=== PATIENT | female | born 1990 | race Hispanic/Latino ===

== ENCOUNTER 2017-01-10 22:14 | Emergency (ER) | payer BC ==
[2017-01-10 23:29] LABS: BASO # 0.1 K/uL (0.0-0.2); BASO % 0.6 % (0.0-2.0); EOS # 0.1 K/uL (0.0-0.7); EOS % 0.8 % (0.0-4.0); HEMATOCRIT 44.2 % (34.0-47.0); LYMPH # 3.2 K/uL (1.0-4.3); LYMPH % 33.3 % (20.0-40.0); MEAN CELL VOLUME 99.4 fl (81.0-99.0); MEAN CORPUSCULAR HEMOGLOBIN 33.5 pg (27.0-31.0); MEAN CORPUSCULAR HGB CONC 33.7 g/dL (33.0-37.0); MEAN PLATELET VOLUME 9.2 fl (7.2-11.7); MONO # 0.6 K/uL (0.0-0.8); MONO % 6.6 % (0.0-10.0); NEUT # 5.6 K/uL (1.8-7.0); NEUT % 58.7 % (50.0-75.0); NRBC % 0.1 % (0.0-0.0); RED CELL DISTRIBUTION WIDTH 12.7 % (11.5-14.5); WHITE BLOOD COUNT 9.5 K/uL (4.8-10.8)
--- NOTE | 2017-01-10 23:33 | ED PDOC ---
HPI: Skin/Bite Injury Time Seen by Provider: 01/10/17 22:28 Chief Complaint (Nursing): Abnormal Skin Integrity Chief Complaint (Provider): Rash - Itchy History Per: Patient History/Exam Limitations: no limitations Onset/Duration Of Symptoms: Days Current Symptoms Are (Timing): Still Present Quality Of Symptoms: Itching Severity: Mild Additional Complaint(s): Pt reports rash which began in the groin 5 days ago. PT states initially she thought it was just razor burn. Pt states it was not itchy or painful at the time. PT states she then began to notice a few erythematous areas on the UE and anterior left leg. Pt reports itchiness x 1 day. No medications at home for symptoms. Pt denies new lotion, detergent, etc. Pt has one current sexual partner. Pt states she also has been feeling off. Past Medical History Reviewed: Historical Data, Nursing Documentation, Vital Signs Vital Signs: Last Vital Signs Temp 97.7 F 01/10/17 22:18 Pulse 100 H 01/10/17 22:18 Resp 16 01/10/17 22:18 BP 119/77 01/10/17 22:18 Pulse Ox 97 01/10/17 22:18 - Medical History PMH: No Chronic Diseases - Surgical History Surgical History: No Surg Hx - Family History Family History: States: No Known Family Hx - Living Arrangements Living Arrangements: With Family - Social History Current smoker - smoking cessation education provided: Yes (Occasional ) Alcohol: Occasional Drugs: Denies - Allergies Allergies/Adverse Reactions: Allergies Allergy/AdvReac Type Severity Reaction Status Date / Time amoxicillin Allergy RASH Verified 01/10/17 22:18 Review of Systems ROS Statement: Except As Marked, All Systems Reviewed And Found Negative Constitutional: Negative for: Fever, Chills Gastrointestinal: Negative for: Nausea, Vomiting, Abdominal Pain Physical Exam - Reviewed Nursing Documentation Reviewed: Yes Vital Signs Reviewed: Yes - Physical Exam Appears: Positive for: Well, Non-toxic, No Acute Distress Head Exam: Positive for: ATRAUMATIC, NORMAL INSPECTION, NORMOCEPHALIC Skin: Positive for: Warm, Rash (Erythematous raised rash on the groin, maculopapular, some lesions with scaled edges. (+) lesion on the anterior left lower leg with central scalled white skin. Several smal erythematous papules on UE bilateral). Negative for: Normal Color Eye Exam: Positive for: Normal appearance ENT: Positive for: Normal ENT Inspection Neck: Positive for: Normal, Painless ROM Cardiovascular/Chest: Positive for: Regular Rate, Rhythm Respiratory: Positive for: Normal Breath Sounds. Negative for: Accessory Muscle Use, Respiratory Distress Back: Positive for: Normal Inspection Extremity: Positive for: Normal ROM Neurologic/Psych: Positive for: Alert, Oriented - ECG O2 Sat by Pulse Oximetry: 97 Medical Decision Making Medical Decision Making: Pt endorsed to DEMETRI Levine at 0000 Disposition - Clinical Impression Clinical Impression: Rash - Patient ED Disposition Is Patient to be Admitted: Transfer of Care - Disposition Disposition: Transfer of Care Disposition Time: 00:00 Condition: STABLE
[2017-01-10 23:46] LABS: ALB/GLOB RATIO 1.5 (1.0-2.1); ALKALINE PHOSPHATASE 54 U/L (38-126); ALT/SGPT 20 U/L (9-52); AST/SGOT 32 U/L (14-36); BILIRUBIN,TOTAL 0.8 mg/dl (0.2-1.3); BLOOD UREA NITROGEN 11 mg/dl (7-17); CALCIUM 10.6 mg/dL (8.4-10.2); CARBON DIOXIDE 24 mmol/L (22-30); CHLORIDE 102 mmol/L (98-107); GFR AFRICAN-AMERICAN > 60; GLUCOSE,RANDOM 100 mg/dL (65-105); POTASSIUM 4.2 MMOL/L (3.6-5.0); SODIUM 143 mmol/l (132-148); TOTAL PROTEIN 8.2 G/DL (6.3-8.2)
[2017-01-11 00:28] VITALS: PULSE 80; RESP 18; TEMP 98; O2SAT 98
[2017-01-11 00:30] VITALS: BP 112/78
--- NOTE | 2017-01-11 00:57 | ED PDOC ---
- Laboratory Results Result Diagrams: 01/10/17 23:28 01/10/17 23:28 - ECG O2 Sat by Pulse Oximetry: 98 - Progress ED Course And Treament: Case endorsed to loan underwriter from lian MOSQUERA pending labs Patient evaluated by ED attending, will treat for tinea infection. Patient educated on findings, discharged with rx Clotrimazole. Advised follow up PMD 2-3 days. Follow up Dermatology for persistent symptoms. Return to ED for worsening/concerning symptoms. Disposition - Clinical Impression Clinical Impression: Rash - POA Present On Arrival: None - Disposition Disposition: Routine/Home Disposition Time: 00:57 Condition: STABLE Prescriptions: Clotrimazole 1% Cream [Lotrimin 1% CREAM] 1 applic TOP BID #1 tube Instructions: Skin Yeast Infection (ED) Forms: [facility] (Kyrgyz)
== END 2017-01-11 01:02 | disposition home or self-care (01) ==
LOC: H.ER 22:14
DX: B35.4 Tinea corporis (principal)

== ENCOUNTER 2017-10-12 16:41 | Emergency (ER) | payer BC ==
[2017-10-12 17:48] VITALS: O2SAT 99
[2017-10-12] MEDS ORDERED: Alum-Mag Hydrox-Simethicone Susp (30 mL) PO ONE (19:42)
[2017-10-12] MEDS ORDERED: Alum-Mag Hydrox-Simethicone Susp (30 mL) ONE (19:50)
--- NOTE | 2017-10-12 19:50 | ED PDOC ---
HPI: Abdomen Time Seen by Provider: 10/12/17 19:29 Chief Complaint (Nursing): Abdominal Pain Chief Complaint (Provider): Abdominal Pain History Per: Patient History/Exam Limitations: no limitations Onset/Duration Of Symptoms: Days (x1) Current Symptoms Are (Timing): Still Present Additional Complaint(s): 27 year old female with surgical history of appendectomy, presents to the emergency department with a complaint of upper and lower abdominal pain associated with cramping and pleuritic pain ongoing since 1400 earlier today. Patient further reports irregular menstrual bleeding (twice this month) with intermittent blood clots and dizziness. She was seen at an Urgent Care center today and recommended to go to ED for further evaluation. Patient denies any vomiting or diarrhea. She states she had similar but less severe episodes in the past which usually resolves on its own. Patient has a pending [facility] appointment on 10/15/17. Past Medical History Reviewed: Historical Data, Nursing Documentation, Vital Signs Vital Signs: Last Vital Signs Temp 98.4 F 10/12/17 17:43 Pulse 95 H 10/12/17 17:43 Resp 18 10/12/17 17:43 BP 104/70 10/12/17 17:43 Pulse Ox 99 10/12/17 23:40 - Medical History PMH: No Chronic Diseases - Surgical History Surgical History: Appendectomy - Family History Family History: States: Unknown Family Hx - Immunization History Hx Tetanus Toxoid Vaccination: No Hx Influenza Vaccination: No Hx Pneumococcal Vaccination: No - Home Medications Home Medications: Ambulatory Orders Medication Instructions Recorded Clotrimazole 1% Cream [Lotrimin 1% 1 applic TOP BID #1 tube 01/11/17 CREAM] Famotidine [Pepcid] 20 mg PO DAILY #14 tab 10/12/17 - Allergies Allergies/Adverse Reactions: Allergies Allergy/AdvReac Type Severity Reaction Status Date / Time amoxicillin Allergy RASH Verified 10/12/17 17:43 Review of Systems ROS Statement: Except As Marked, All Systems Reviewed And Found Negative Respiratory: Positive for: Pleuritic Pain Gastrointestinal: Positive for: Abdominal Pain (upper and lower with cramps). Negative for: Vomiting, Diarrhea Genitourinary Female: Positive for: Vaginal Bleeding (blood clots) Neurological: Positive for: Dizziness Physical Exam - Reviewed Nursing Documentation Reviewed: Yes Vital Signs Reviewed: Yes - Physical Exam Appears: Positive for: Well, Non-toxic, No Acute Distress Head Exam: Positive for: ATRAUMATIC, NORMAL INSPECTION, NORMOCEPHALIC Skin: Positive for: Normal Color Eye Exam: Positive for: Normal appearance ENT: Positive for: Normal ENT Inspection Neck: Positive for: Normal, Supple Cardiovascular/Chest: Positive for: Regular Rate, Rhythm. Negative for: Murmur Respiratory: Positive for: Normal Breath Sounds. Negative for: Respiratory Distress Gastrointestinal/Abdominal: Positive for: Soft, Tenderness (epigastic; suprapubic - LLQ > RUQ). Negative for: Distended, Guarding, Rebound Back: Positive for: Normal Inspection. Negative for: L CVA Tenderness, R CVA Tenderness Extremity: Positive for: Normal ROM (upper/lower) Neurologic/Psych: Positive for: Alert, Oriented. Negative for: Motor/Sensory Deficits - Laboratory Results Result Diagrams: 10/12/17 20:23 10/12/17 20:23 - ECG O2 Sat by Pulse Oximetry: 99 (RA) Pulse Ox Interpretation: Normal Medical Decision Making Medical Decision Making: Initial Impression: Epigastric pain; suprapubic pain Differential Diagnosis: Gastritis; pancreatitis; gallbladder disease; diverticulits; UTI; -related complication; ovarian cyst; dysfunctional uterine bleeding; uterine fibroids Initial Plan: * CMP * Lipase * Urine * Urine dipstick * CBC * Maalox plus 30ml PO * Pepcid 20mg IVP * Toradol 15mg IVP * US ABD * US pelvis Time: 2009 --Urine: negative for . Time: 2135 --US ABD FINDINGS: Liver: Unremarkable. Measures up to 15.3 cm. Gallbladder: Unremarkable. No gallstones. Common bile duct: Measures up to 3 mm. Pancreas: Unremarkable as visualized. Right kidney: Normal in size. No hydronephrosis. The aorta and IVC unremarkable. IMPRESSION: No evidence of cholelithiasis. Time: 2220 --US pelvis FINDINGS: Uterus/cervix: No myometrial mass. Endometrium: 0.6 cm in thickness. Right ovary: 2.2 x 1.4 x 2.0 cm anechoic lesion. Normal flow. Left ovary: No mass. Normal flow. Free fluid: No significant free fluid. IMPRESSION: 1. RIGHT ovarian cyst Scribe Attestation: Documented by Christi Melissa, acting as a scribe for Adriano Montero MD. Provider Scribe Attestation: All medical record entries made by the Scribe were at my direction and personally dictated by me. I have reviewed the chart and agree that the record accurately reflects my personal performance of the history, physical exam, medical decision making, and the department course for this patient. I have also personally directed, reviewed, and agree with the discharge instructions and disposition. Time: 2237 Plan: -- CT Abd/Pelvis Time: 2237 CT ABD/PELVIS RESULTS FINDINGS: Limitations: Motion artifact - mild. Lung bases: Minimal atelectasis/scarring. ABDOMEN: Liver: Fatty infiltration. Gallbladder and bile ducts: No calcified stones. No ductal dilation. Pancreas: No ductal dilation. No mass. Spleen: No splenomegaly. Adrenals: No mass. Kidneys and ureters: No mass. No hydronephrosis. Stomach and bowel: Fluid/air within small bowel. Fluid/loose stool within RIGHT colon. No definite mural thickening. No obstruction. PELVIS: Appendix: Appendectomy. Bladder: Unremarkable. Reproductive: 2.1 x 1.8 x 1.3 cm hypodense lesion within RIGHT ovary. Tampon within vaginal vault. ABDOMEN and PELVIS: Intraperitoneal space: No significant fluid collection. No free air. Bones/joints: No acute fracture. Soft tissues: Breast implants. Tiny umbilical hernia containing fat. Vasculature: Unremarkable. No aneurysm. Lymph nodes: No pathologically enlarged lymph nodes. IMPRESSION: 1. RIGHT ovarian cyst. See ultrasound report. 2. Fluid/loose stool within bowel may suggest diarrhea illness. 3. Incidental/non-acute findings are described above. Thank you for allowing us to participate in the care of your patient. Dictated and Authenticated by: Robert Murphy MD 10/12/2017 11:32 PM Eastern Time ([place] & [place]) Scribe Attestation: Documented by Maxime Georges acting as a scribe for Dr. Adriano Montero MD. Provider Scribe Attestation: All medical record entries made by the Scribe were at my direction and personally dictated by me. I have reviewed the chart and agree that the record accurately reflects my personal performance of the history, physical exam, medical decision making, and the department course for this patient. I have also personally directed, reviewed, and agree with the discharge instructions and disposition. Disposition - Clinical Impression Clinical Impression: Abdominal pain, Vaginal bleeding, Enteritis, Ovarian cyst - Patient ED Disposition Is Patient to be Admitted: No Doctor Will See Patient In The: Office Counseled Patient/Family Regarding: Studies Performed, Diagnosis, Need For Followup - Disposition Disposition: Routine/Home Disposition Time: 23:39 Condition: GOOD Additional Instructions: Take motrin for pain. Follow up with your PCP in 2-3 days. Prescriptions: Famotidine [Pepcid] 20 mg PO DAILY #14 tab Instructions: Ovarian Cysts, Acute Abdomen (Belly Pain), Adult (DC) Forms: [facility] (Slovak)
[2017-10-12 20:29] LABS: BASO # 0.1 K/uL (0.0-0.2); BASO % 0.4 % (0.0-2.0); EOS # 0.1 K/uL (0.0-0.7); EOS % 0.3 % (0.0-4.0); HEMOGLOBIN 13.1 g/dL (12.0-16.0); LYMPH # 1.8 K/uL (1.0-4.3); LYMPH % 10.4 % (20.0-40.0); MEAN CELL VOLUME 101.3 fl (81.0-99.0); MEAN CORPUSCULAR HGB CONC 33.5 g/dL (33.0-37.0); MONO # 0.8 K/uL (0.0-0.8); MONO % 4.6 % (0.0-10.0); NEUT # 14.3 K/uL (1.8-7.0); NEUT % 84.3 % (50.0-75.0); RBC 3.87 Mil/uL (3.80-5.20); RED CELL DISTRIBUTION WIDTH 12.8 % (11.5-14.5)
[2017-10-12 20:36] LABS: ALB/GLOB RATIO 1.4 (1.0-2.1); ALBUMIN 4.3 g/dL (3.5-5.0); ALT/SGPT 20 U/L (9-52); AST/SGOT 20 U/L (14-36); BLOOD UREA NITROGEN 16 mg/dl (7-17); CALCIUM 9.9 mg/dL (8.4-10.2); GFR AFRICAN-AMERICAN > 60; GFR NON-AFRICAN AMERICAN > 60; LIPASE 33 U/L (23-300)
[2017-10-12] MEDS ORDERED: Iohexol 300 100 ML IJ ONE (22:45)
[2017-10-13 00:18] VITALS: BP 124/71; PULSE 76; RESP 14; TEMP 98.3
--- NOTE | 2017-10-13 09:20 | US ---
HISTORY: lwoer abd pain vag bleeding COMPARISON: None available. TECHNIQUE: Grayscale, color Doppler and spectral evaluation the pelvis performed transabdominally and transvaginally. FINDINGS: UTERUS: Measures 8.4 x 4.5 x 4.6 cm. Anteverted. Normal in size and appearance. No fibroid or other mass lesion seen. ENDOMETRIUM: Measures 6 mm in diameter. Unremarkable. CERVIX: No cervical abnormality identified. RIGHT OVARY: Measures 2.4 x 1.9 x 2.8 cm. Cyst/follicle measuring 2.2 x 1.4 x 2.0. Normal flow. LEFT OVARY: Measures 2.6 x 2.3 x 1.9 cm. No solid mass. Normal flow. FREE FLUID: No significant free fluid noted. OTHER FINDINGS: None. IMPRESSION: Unremarkable pelvic ultrasound.
--- NOTE | 2017-10-13 09:23 | US ---
HISTORY: abdominal pain COMPARISON: None. TECHNIQUE: Sonographic evaluation of the right upper quadrant of the abdomen. FINDINGS: LIVER: Measures 15.3 cm in length. Normal echogenicity of the liver parenchyma. No mass. No intrahepatic bile duct dilatation. GALLBLADDER: Unremarkable. No gallstones. COMMON BILE DUCT: Measures 3 mm. No stones. No dilatation. PANCREAS: Unremarkable as visualized. No mass. No ductal dilatation. RIGHT KIDNEY: Measures 9.1 x 4.7 x 4.6 cm in length. Normal echogenicity. No calculus, mass, or hydronephrosis. AORTA: No aneurysmal dilatation. IVC: Unremarkable. OTHER FINDINGS: None . IMPRESSION: Unremarkable right upper quadrant ultrasound.
--- NOTE | 2017-10-13 09:43 | CT ---
PROCEDURE: CT Abdomen and Pelvis with contrast HISTORY: ABDOMINAL PAIN COMPARISON: None. TECHNIQUE: Contrast dose: 90 mL Omnipaque 300 Radiation dose: Total exam DLP = 475.1 mGy-cm. This CT exam was performed using one or more of the following dose reduction techniques: Automated exposure control, adjustment of the mA and/or kV according to patient size, and/or use of iterative reconstruction technique. FINDINGS: LOWER THORAX: Bilateral breast prostheses. No focal consolidation or pleural effusion. Heart size normal. LIVER: Unremarkable. No gross lesion or ductal dilatation. GALLBLADDER AND BILE DUCTS: Unremarkable. PANCREAS: Unremarkable. No gross lesion or ductal dilatation. SPLEEN: Unremarkable. ADRENALS: Unremarkable. No mass. KIDNEYS AND URETERS: Unremarkable. No hydronephrosis. No solid mass. VASCULATURE: Unremarkable. No aortic aneurysm. BOWEL: Unremarkable. No obstruction. No gross mural thickening. APPENDIX: No findings to suggest acute appendicitis. PERITONEUM: Unremarkable. No free fluid. No free air. LYMPH NODES: Unremarkable. No enlarged lymph nodes. BLADDER: Unremarkable. REPRODUCTIVE: 2.1 cm right ovarian cyst/follicle. BONES: No acute fracture. OTHER FINDINGS: None. IMPRESSION: No acute abdominal pelvic pathology.
== END 2017-10-13 00:15 | disposition home or self-care (01) ==
LOC: H.ER 16:41
DX: R10.30 Lower abdominal pain, unspecified (principal); N93.9 Abnormal uterine and vaginal bleeding, unspecified; K52.9 Noninfective gastroenteritis and colitis, unspecified; N83.201 Unspecified ovarian cyst, right side
CPT/HCPCS: 74177; 76705; 76856; 80053; 81025; 83690; 85025; 96374; 96375; 99284; J1885; Q9967